=== PATIENT | male | born 1990 | race Hispanic/Latino ===

== ENCOUNTER 2021-12-13 10:07 | Emergency (ER) | payer OTHER ==
[~2021-12-13] VITALS: Ht 157.5 cm; Wt 72.0 kg
[2021-12-13] MEDS ORDERED: CEPHALEXIN500 M1 PO (10:42)
[2021-12-13] MEDS ORDERED: MUPIROCIN2 % EX (11:14)
[2021-12-13 11:16] VITALS: BP 115/83
== END 2021-12-13 11:27 | disposition home or self-care (01) | DRG 605 ==
LOC: ED 10:07
DX: S61.213A Laceration without foreign body of left middle finger without damage to nail, initial encounter (principal); L03.114 Cellulitis of left upper limb; W27.1XXA Contact with garden tool, initial encounter; Y99.0 Civilian activity done for income or pay

== ENCOUNTER 2022-05-15 09:00 | Emergency (ER) | payer OTHER ==
[~2022-05-15] VITALS: Ht 157.5 cm; Wt 75.0 kg
[~2022-05-15 09:00] MED LIST: CEPHALEXIN500 M1 PO; MUPIROCIN2 % EX
[2022-05-15 09:19] VITALS: BP 120/74
[2022-05-15] MEDS ORDERED: PREDNISONE20 MG PO (09:22)
== END 2022-05-15 09:44 | disposition home or self-care (01) | DRG 607 ==
LOC: ED 09:00
DX: R22.0 Localized swelling, mass and lump, head (principal)